=== PATIENT | female | born 1955 | race Caucasian/White ===

== ENCOUNTER 2016-05-15 15:14 | Inpatient (IN) | payer OTHER, MEDICAID ==
--- NOTE | 2016-05-15 15:31 | CPEKG ---
Heart Rate: 111 RR Interval: 541 P-R Interval: 152 QRSD Interval: 68 QT Interval: 316 QTC Interval: 430 P [place]: 73 QRS [place]: -41 T Wave [place]: 53 EKG Severity - OTHERWISE NORMAL ECG - EKG Impression: SINUS TACHYCARDIA EKG Impression: LEFT AXIS DEVIATION Electronically Signed By: Beto Hutchinson 15-May-2016 17:23:53
[2016-05-15] MEDS ORDERED: IPRATROPIUM/ALBUTEROL 3 ML DEYVIAL IH ONE (15:34)
--- NOTE | 2016-05-15 15:34 | EDPHY ---
H & P Time Seen by Provider: 05/15/16 15:33 HPI/ROS: Chief complaint. Short of breath HPI. 61-year-old female here by EMS from [facility] with shortness of breath that apparently has been bothering her for the last several days but worse today. She had an upper respiratory infection 2 weeks ago. She was hospitalized at [facility] on May 03 for 4 days after a fall and she could not get up. She has been at [facility] for 1 week. Increased shortness of breath today. Apparent fever. She is on no medications other than eyedrops. She has a history of lung and brain cancer in the that is apparently historical. She does however have seizures. Her last seizure was about 2 weeks ago. She continues to smoke. She carries a DNR status and paperwork is here ROS Constitutional. Fever and weakness Eyes. no problems with vision ENT. no sore throat, no nasal drainage Cardiovascular. no chest pain Respiratory. Shortness of breath Abdominal. no abdominal pain, no nausea/vomiting, no diarrhea . no problems urinating MS. no calf pain/swelling, no neck/back pain, no joint pain Skin. no rash Lymph. no swollen glands Neuro. Can't walk and has not spoken. History is from her niece Past Medical/Surgical History: Metastatic lung cancer, seizure disorder, osteoporosis, failure to thrive, likely COPD Social History: Single, daily smoker, no alcohol Smoking Status: Current every day smoker Physical Exam: General Appearance: Alert but nonverbal well-developed female moderate to severe distress. Vital signs show temp 37.9degrees, heart rate 115, O2 saturation 88% on 10 L Eyes: Pupils equal and round no pallor or injection. ENT, Mouth: Mucous membranes are moist. Respiratory: Inspiratory expiratory rhonchi and there are retractions Cardiovascular: Regular rate and rhythm. Gastrointestinal: Abdomen is soft and nontender, no masses, bowel sounds normal. Neurological: Awake and alert, sensory and motor exams grossly normal. Skin: Warm and dry, no rashes. Musculoskeletal: Neck is supple nontender. Extremities symmetrical, full range of motion. Psychiatric: Patient is nonverbal Constitutional: Initial Vital Signs Temperature (C) 37.9 C 05/15/16 15:30 Heart Rate 115 H 05/15/16 15:30 Respiratory Rate 20 05/15/16 15:30 Blood Pressure 139/97 H 05/15/16 15:30 O2 Sat (%) 88 L 05/15/16 15:30 O2 Delivery Mode Bi-Pap O2 (L/minute) 15 Allergies/Adverse Reactions: Sulfa (Sulfonamide Antibiotics) Allergy (Verified 05/15/16 16:16) tetracycline Allergy (Verified 05/15/16 16:17) Home Medications: Medication Instructions Recorded Acetaminophen [Tylenol 325mg (*)] 325 mg PO Q4H PRN 05/15/16 Acetaminophen [Tylenol Supp 325mg 650 mg NC Q4H PRN 05/15/16 (*)] Guaifenesin [Tussin] 200 mg PO Q6H PRN 05/15/16 Nicotine [Nicoderm Cq 7 mg (*)] 7 mg TD DAILY@05/15/16 Sennosides/Docusate Sodium 2 each PO BID PRN 05/15/16 [SENEXON-S TABLET] guaiFENesin [Mucinex 600 MG (*)] 1,200 mg PO BID@,05/15/16 morphINE [Roxanol 10 mg/0.5 ml 5 mg PO Q2H PRN 05/15/16 oral soln (*)] Medical Decision Making - Diagnostics Imaging: One-view chest x-ray interpreted by me consistent with either CHF for pneumonia. Procedures: IV normal saline with gentle fluid bolus of 500 cc. Monitor. Sepsis workup ED Course/Re-evaluation: Respiratory therapy is contacted to place the patient on BiPAP. The BiPAP improved oxygenation and decreases heart rate IV Rocephin after blood cultures I consulted and discussed case Dr. Coughlin, hospitalist who recommends cefepime. This is given in addition to the Rocephin. The patient, her niece, and I discussed treatment plan in continuing comfort with DNR orders. Fortunately the patient is doing well with BiPAP. Patient will be placed in ICU or step-down Differential Diagnosis: I considered pneumonia, congestive heart failure, acute coronary syndrome. Patient has acute respiratory failure but is DNR. Fortunately the BiPAP seems to be helping quite a bit Critical Care Time: Critical care time exclusive procedures 40 minutes - Data Points Laboratory Results: Laboratory Results 05/15/16 15:21 05/15/16 15:21 05/15/16 05/15/16 15:39 15:21 WBC 14.42 H 10^3/uL (3.80-9.50) RBC 4.68 10^6/uL (4.18-5.33) Hgb 14.5 g/dL (12.6-16.3) Hct 44.6 % (38.0-47.0) MCV 95.3 fL (81.5-99.8) MCH 31.0 pg (27.9-34.1) MCHC 32.5 g/dL (32.4-36.7) RDW 13.6 % (11.5-15.2) Plt Count 497 H 10^3/uL (150-400) MPV 9.9 fL (8.7-11.7) Neut % (Auto) Not Reported Lymph % (Auto) Not Reported [place] % (Auto) Not Reported Eos % (Auto) Not Reported Baso % (Auto) Not Reported Nucleat RBC Rel Count 0.0 % (0.0-0.2) Absolute Neuts (auto) Not Reported Absolute Lymphs (auto) Not Reported Absolute Monos (auto) Not Reported Absolute Eos (auto) Not Reported Absolute Basos (auto) Not Reported Absolute Nucleated RBC 0.00 10^3/uL (0-0.01) Immature Gran % Not Reported Seg Neutrophils % 67 % Band Neutrophils % 16 % Lymphocytes % 14 % Monocytes % 3 % Immature Gran # Not Reported Absolute Seg Neuts 9.66 H 10^/uL (1.70-6.50) Absolute Band Neuts 2.31 H 10^3/uL (0.00-0.70) Absolute Lymphocytes 2.02 10^3/uL (1.00-3.00) Absolute Monocytes 0.43 10^3/uL (0.30-0.80) Platelet Estimate ADEQUATE (ADEQ) Large Platelets PRESENT H Polychromasia 1+ H Echinocytes 1+ H PT 16.0 H SEC (12.0-15.0) INR 1.28 H (0.83-1.16) APTT 29.6 SEC (23.0-38.0) VBG Lactic Acid 2.9 H mmol/L (0.7-2.1) Sodium 147 H mEq/L (134-144) Potassium 4.6 mEq/L (3.5-5.2) Chloride 104 mEq/L (97-110) Carbon Dioxide 29 mEq/l (22-31) Anion Gap 14 mEq/L (8-16) BUN 20 mg/dL (7-23) Creatinine 0.7 mg/dL (0.6-1.0) Estimated GFR > 60 Glucose 145 H mg/dL (70-100) Calcium 9.4 mg/dL (8.5-10.4) Total Bilirubin 0.9 mg/dL (0.1-1.4) Troponin I 0.014 ng/mL (0-0.034) NT-Pro-B Natriuret Pep 929 H pg/mL (0-125) Medications Given: Discontinued Medications Albuterol/Ipratropium (Duoneb) 3 ml IH EDNOW ONE Stop: 05/15/16 15:35 Last Admin: 05/15/16 15:42 Dose: 3 ml Ceftriaxone Sodium 2 gm/ (Dextrose) 50 mls @ 100 mls/hr IV EDNOW ONE PRN Reason: Protocol Stop: 05/15/16 16:32 Last Admin: 05/15/16 16:23 Dose: 50 mls Sodium Chloride (Ns) 500 mls @ 0 mls/hr IV ONCE ONE PRN Reason: Wide Open Stop: 05/15/16 16:15 Last Admin: 05/15/16 16:24 Dose: 500 mls Cefepime HCl 2 gm/ Dextrose 100 mls @ 200 mls/hr IV EDNOW ONE PRN Reason: Protocol Stop: 05/15/16 17:03 Last Admin: 05/15/16 17:06 Dose: 100 mls Sodium Chloride (Ns) 1,000 mls @ 3,000 mls/hr IV ONCE ONE Stop: 05/15/16 17:13 Last Admin: 05/15/16 16:58 Dose: 1,000 mls Departure - Departure Disposition: [facility] Inpatient Acute Clinical Impression: Acute respiratory failure Qualifiers: Respiratory failure complication: hypoxia Qualifier Code: (J96.01) Acute respiratory failure with hypoxia Pneumonia Qualifiers: Pneumonia type: due to unspecified organism Condition: Serious
[2016-05-15 15:43] LABS: ADD MORPH? NO; ADD SCAN? YES; ATYPICAL LYMPHOCYTE FLAG 30 (0-99); FRAGMENT RBC FLAG 0 (0-99); HEMATOCRIT 44.6 % (38.0-47.0); HEMOGLOBIN 14.5 g/dL (12.6-16.3); LIPEMIA HEMOLYSIS FLAG 80 (0-99); MEAN CELL HEMOGLOBIN CONCENTR. 32.5 g/dL (32.4-36.7); MEAN CELL VOLUME 95.3 fL (81.5-99.8); MEAN PLATELET VOLUME 9.9 fL (8.7-11.7); PLATELET CLUMPS FLAG 0 (0-99); PLATELET COUNT 497 10^3/uL (150-400); RED BLOOD CELL COUNT 4.68 10^6/uL (4.18-5.33); RED CELL DISTRIBUTION WIDTH 13.6 % (11.5-15.2)
[2016-05-15 15:47] LABS: INR 1.28 (0.83-1.16)
[2016-05-15 15:48] LABS: APTT 29.6 SEC (23.0-38.0)
[2016-05-15 15:53] LABS: LEFT SHIFT FLG 260 (0-99)
[2016-05-15 15:56] LABS: ANION GAP 14 mEq/L (8-16); CALCIUM 9.4 mg/dL (8.5-10.4); CARBON DIOXIDE 29 mEq/l (22-31); CHLORIDE 104 mEq/L (97-110); CREATININE 0.7 mg/dL (0.6-1.0); GLOMERULAR FILTRATION RATE > 60; GLUCOSE 145 mg/dL (70-100); POTASSIUM 4.6 mEq/L (3.5-5.2); SODIUM 147 mEq/L (134-144)
[2016-05-15 16:02] LABS: BILIRUBIN,TOTAL 0.9 mg/dL (0.1-1.4)
[2016-05-15] MEDS ORDERED: cefTRIAXone 2 GM in D5W 50 ML IV ONE (16:03)
[2016-05-15 16:11] LABS: TROPONIN I 0.014 ng/mL (0-0.034)
[2016-05-15 16:18] LABS: ADD DIFF? YES; SCAN POSITIVE
[2016-05-15] MEDS: NS 500 ML IV ONE ×2 (16:23→16:24)
[2016-05-15 16:24] LABS: LARGE PLATELETS PRESENT; PLATELET ESTIMATE ADEQUATE (ADEQ)
[2016-05-15 16:25] LABS: POLYCHROMASIA 1+
[2016-05-15 16:26] LABS: ECHINOCYTES 1+
[2016-05-15] MEDS ORDERED: CEFEPIME HCL 2 GM in D5W 100 ML IV ONE (16:34)
--- NOTE | 2016-05-15 16:48 | DX ---
Portable AP Upright Chest, Two Views May 15, 2016 3:52 p.m. Clinical History: 61-year-old female complaining of shortness of breath. Comparison Study: None. Findings: On the two views obtained, the patient is rotated to the right, and the technologist indica nik that the patient was unable to be straightened while seated, and the images acquired were the bes t possible. Telemetry monitoring lead lines and oxygen tubing are in place. There are some surgical c lips projected over the central aspect of the chest. There are diffuse areas of alveolar consolidatio n involving the right mid and lower lung zones, with peribronchial thickening. The left hemithorax is relatively clear. The patient's left nipple is seen en-face. There is no pneumothorax. There is a le vorotatory thoracic curvature which may be positional. Impression: 1. Right rotational change. 2. Diffuse infiltrates involving the right [id number] lung zones.
[2016-05-15] MEDS ORDERED: NS 1,000 ML IV ONE (16:54)
[2016-05-15] MEDS ORDERED: ONDANSETRON DISINTEGRATING 4 MG TAB PO PRN (16:55)
[2016-05-15] MEDS ORDERED: LORazepam 2 MG/ML INJ IVP PRN (16:55)
[2016-05-15] MEDS ORDERED: ALBUTEROL 3 ML DEYVIAL IH PRN (16:55)
[2016-05-15] MEDS ORDERED: ONDANSETRON 4 MG/2 ML VIAL IVP PRN (16:55)
[2016-05-15] MEDS ORDERED: HYDROmorphONE/DILAUDID 1 MG/ML SYR ONE (17:15)
[2016-05-15] MEDS: HYDROmorphONE/DILAUDID 1 MG/ML SYR IVP PRN (17:19)
--- NOTE | 2016-05-15 17:38 | GHP ---
[f rep st] HISTORY AND PHYSICAL DATE OF ADMISSION: 05/15/2016 HISTORY OF PRESENT ILLNESS: The patient is a 61-year-old female with a remote history of lung cancer with likely COPD and ongoing smoking use, who presents in respiratory distress. Much of the history is obtained from her niece who was at the bedside, as the patient is on bilevel and not that verbal when I speak with her. It sounds like she was living with the niece and doing poorly with declining functional status, ernestine nuing to smoke cigarettes, with generalized weakness. She was admitted to [facility]. I t sounds like she was diagnosed with aspiration, but the details of that hospitalization are unclear, and the records are not available to me. She was sent to [facility] and she reports from there t paulino. She has a dry cough. She acknowledges shortness of breath to me. It is not clear that any in terventions in the Emergency Department such as bilevel antibiotics have helped her. She did get a f yulissa shot this year. She has recently been transitioned to nectar-thick liquids, but the daughter note d solid food at her bedside. We discussed the code status and the patient is do not resuscitate. REVIEW OF SYSTEMS: A complete 10-point review of systems was conducted and negative, except as noted in the HPI. PAST MEDICAL HISTORY: 1. Lung cancer with brain mets in the 90s that is apparently in remission. 2. Likely COPD. 3. Ongoing tobacco use and abuse. 4. Cachexia. 5. Aspiration. SOCIAL HISTORY: She is a lifelong smoker. Minimal alcohol. [facility] FAMILY HISTORY: Her niece is healthy. Her parents are . ALLERGIES: Sulfa and tetracycline. MEDICATIONS: Home medications are being reconciled at this point in time and are unclear. PHYSICAL EXAM: PRESENTING VITAL SIGNS: Temperature 37.9, blood pressure 139/97, pulse , b reathing 20 times a minute, 88% on 15 L non-rebreather, is 95% on BiPAP now. GENERAL: She is cachec tic, in mild distress. HEENT: Mucous membranes are dry. NECK: Supple without lymphadenopathy or J VD. LUNGS: A difficult exam. They are rhonchorous from the bilevel. There are crackles on the rig ht side. HEART: Tachycardic. S1, S2. ABDOMEN: Scaphoid. Nontender without rebound or guarding. LOWER EXTREMITIES: Without edema. Her calves are nontender. SKIN: Without rash. I did not view her coccyx for skin breakdown. LABS: Her white count is 14 with a left shift. Her hematocrit is 45, platelets are 497,000. INR is 1.3. Lactate is 2.9. Sodium 147, potassium 4.6, chloride 104, bicarb 29, BUN 20, creatinine 0.7, glucose 145. Troponin is 0.014. BNP is 929 without prior available. Chest x-ray shows significant rightward rotation with left hyperinflation and infiltrate throughout t he right lobe. EKG interpreted by me shows sinus tachycardia at 111 with left axis deviation, normal intervals, ther e were no ST or T-wave changes. I have discussed the case Dr. Beto Hutchinson. ASSESSMENT AND PLAN: This is a 61-year-old female with sepsis and pneumonia. 1. Pneumonia. This is healthcare-associated pneumonia. I will treat her with Zosyn and azithromyci n, given the concern for possible anaerobes with a likely aspiration. 2. Acute respiratory failure. The patient has hypoxemic respiratory failure. It is likely acute-on -chronic given her long-standing smoking. Will provide bilevel nebulizers. I will give her a dose o f steroids as well. 3. Sepsis. Source is lungs. I will check an influenza for completeness' sake. I will follow up on her venous lactate. I will volume resuscitate her now. 4. Code status. Do not resuscitate. 5. Disposition. Step-down unit. 6. Prophylaxis. Pharmacologic prophylaxis indicated with enoxaparin 30 daily. 7. Elevated BNP. I suspect she has pulmonary hypertension. 8. Anemia. It is likely multifactorial. DISPOSITION: Inpatient status. /[id number]/MODL
[2016-05-15] MEDS ORDERED: PIPERACILLIN SODIUM/TAZOBACTAM 3.375 GM in D5W 50 ML IV ONE (18:30)
[2016-05-15] MEDS: AZITHROMYCIN IV 500 MG in D5W 250 ML IV SCH (20:56)
[2016-05-15] MEDS: NS 1,000 ML IV SCH (20:56)
[2016-05-15] MEDS: methylPREDNISolone SOD SUCC 40 MG/ML VIAL IVP SCH (20:57)
[2016-05-15] MEDS ORDERED: CEFEPIME HCL 2 GM in D5W 100 ML IV SCH (21:00)
[2016-05-15] MEDS: IPRATROPIUM/ALBUTEROL 3 ML DEYVIAL IH SCH (22:14)
[2016-05-16] MEDS ORDERED: PIPERACILLIN/TAZO 3.375 GM/DEX 50 ML IV SCH
[2016-05-16] MEDS: HYDROmorphONE/DILAUDID 1 MG/ML SYR IVP PRN (01:17)
[2016-05-16] MEDS: PIPERACILLIN SODIUM/TAZOBACTAM 3.375 GM in D5W 50 ML IV SCH ×5 (01:28→23:02)
[2016-05-16] MEDS: NS 1,000 ML IV SCH ×2 (05:00→20:24)
[2016-05-16] MEDS: IPRATROPIUM/ALBUTEROL 3 ML DEYVIAL IH SCH ×4 (05:18→21:34)
[2016-05-16 05:34] LABS: ANION GAP 9 mEq/L (8-16); CALCIUM 7.5 mg/dL (8.5-10.4); CARBON DIOXIDE 23 mEq/l (22-31); CHLORIDE 113 mEq/L (97-110); CREATININE 0.5 mg/dL (0.6-1.0); GLOMERULAR FILTRATION RATE > 60; GLUCOSE 152 mg/dL (70-100); POTASSIUM 3.8 mEq/L (3.5-5.2); SODIUM 145 mEq/L (134-144)
[2016-05-16 05:45] LABS: % IMMATURE GRANULYOCYTES 0.3 % (0.0-1.1); ABSOLUTE IMMATURE GRANULOCYTES 0.04 10^3/uL (0.00-0.10); ADD DIFF? NO; ADD MORPH? NO; ADD SCAN? YES; ATYPICAL LYMPHOCYTE FLAG 20 (0-99); FRAGMENT RBC FLAG 0 (0-99); HEMATOCRIT 33.7 % (38.0-47.0); HEMOGLOBIN 11.2 g/dL (12.6-16.3); LIPEMIA HEMOLYSIS FLAG 80 (0-99); MEAN CELL HEMOGLOBIN 31.8 pg (27.9-34.1); MEAN CELL HEMOGLOBIN CONCENTR. 33.2 g/dL (32.4-36.7); MEAN CELL VOLUME 95.7 fL (81.5-99.8); MEAN PLATELET VOLUME 9.8 fL (8.7-11.7); PLATELET CLUMPS FLAG 10 (0-99); PLATELET COUNT 354 10^3/uL (150-400); RED BLOOD CELL COUNT 3.52 10^6/uL (4.18-5.33); RED CELL DISTRIBUTION WIDTH 13.7 % (11.5-15.2)
[2016-05-16 05:46] LABS: LEFT SHIFT FLG 300 (0-99)
[2016-05-16 06:21] LABS: SCAN NEGATIVE
[2016-05-16] MEDS: methylPREDNISolone SOD SUCC 40 MG/ML VIAL IVP SCH ×3 (06:32→22:48)
--- NOTE | 2016-05-16 08:55 | DX ---
Portable AP Upright Chest May 16, 2016 at 6:17 a.m. Clinical History: 61-year-old female in the ICU for follow-up of pneumonia. The patient has a chronic tobacco use history with lung cancer and has a leukocytosis. Comparison Study: Chest, dated May 15, 2016 at 3:52 p.m. Findings: The patient is slightly less rotated to the right. There are surgical clips near the right hilum and volume loss in the right hemithorax with increasing consolidation involving the right mid-l ower lung zones and some asymmetric interstitial changes on the right. There are some surgical anasto motic clips in the right apex. The cardiac size is normal. The left hemithorax is clear and hyperexpa nded. The osseous structures are age-appropriate. Impression: Postsurgical change to the right hemithorax with volume loss and increasing pleuroparench ymal consolidation, compared to May 15, 2016.
[2016-05-16] MEDS: AZITHROMYCIN IV 500 MG in D5W 250 ML IV SCH (09:05)
[2016-05-16] MEDS: ENOXAPARIN 30 MG/0.3 ML SYR SC SCH (09:05)
--- NOTE | 2016-05-16 10:26 | HOSPPROG ---
Hospitalist Progress Note Assessment/Plan: DIAGNOSIS: # ACUTE RESP FAILURE, HYPOXEMIC REQUIRING BIPAP # PNEUMONIA, LIKELY ASPIRATION # SEVERE CACHEXIA, SEVERE PCM WITH ONGOING FAIRLY RAPID WT LOSS # BACK PAIN # NORMOCYTIC ANEMIA # HYPERNATREMIA In terms of her acute respiratory presentation this is likely respiratory infection induced respiratory failure with COPD exacerbation. I expect that this will recover fairly well without complication. However her overall picture is highly suggestive of either malignancy or some other underlying illness and this will need significant further evaluation and prognostication. PLANS: -swallow eval and decide on po intake -continue abx -continue bronchodilators, steroid -vitamin replacement therapy -nutritional supplements -Will get x-rays of her spine to look for any signs of malignancy, and possibly further evaluation depending on what is seen air I reviewed the patient's condition and care plan with Dr. 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 Exam: alert mildly disoriented Severe cachexia and other signs of diffuse protein calorie malnutrition and general malnutrition skin warm dry color ok resps not labored lungs clear but very diminished BSs heart regular abd soft nondistended nontender, bowel sounds present limbs warm, no edema iv site ok Objective: Vital Signs Temp Pulse Resp BP Pulse Ox 37.3 C 87 21 H 117/64 95 05/15/16 20:00 05/16/16 07:57 05/16/16 07:57 05/16/16 07:57 05/16/16 07:57 Laboratory Results 05/16/16 05:05 05/16/16 05:05 05/15/16 05/16/16 05/17/16 06:59 06:59 06:59 Intake Total 3005 Balance 3005 PT 16.0 SEC (12.0-15.0) H 05/15/16 15:21 INR 1.28 (0.83-1.16) H 05/15/16 15:21 ICD10 Worksheet Patient Problems: Problems Problem Status Diagnosed Acute respiratory failure Acute Pneumonia Acute
[2016-05-16] MEDS: morphINE 10 MG/0.5 ML UDSYR PO PRN (14:09)
[2016-05-16 14:16] LABS: BASE EXCESS -0.4 mEq/L (-2.5-2.5); BICARBONATE 22 mEq/L (22-26); MEASURED OXYGEN SATURATION 91 % (92-95); PCO2 29 mmHg (34-38); PO2 56 mmHg (65-75); TCO2 23 mEq/L (23-27)
--- NOTE | 2016-05-16 18:01 | GCON ---
[f rep st] CONSULTATION PULMONARY CRITICAL CARE CONSULTATION DATE OF CONSULTATION: 05/16/2016 REASON FOR CONSULTATION: Pneumonia. HISTORY: The patient is a 61-year-old with a history of lung cancer and COPD, who was admitted yeste rday with respiratory distress. She was recently at [facility] and was treated there for alte red mental status and weakness. She did not have pneumonia at that time and CT scan of the lungs did not show pneumonia at that time on right side. There was evidence of a previous right-sided lobecto my related to the right upper lobe and some scarring or atelectasis at the lung bases. CT scan of th e head and MRI were negative for acute processes. Workup was negative for infection. She did have a Palliative Care consultation there and the patient was apparently discharged to Hospice. However, a fter discharge her niece and medical [id number]-nozcydfy apparently changed her mind and withdrew the h ospice status. The patient does remain do not resuscitate. She was brought into the hospital secondary to increasing respiratory distress. She did have a histo ry of metastatic lung cancer associated with brain metastases a number of years ago. This was appare ntly in the and there has been no evidence of recurrence since then. The patient does smoke an d continues to smoke. She clearly has COPD and emphysema, as the latter was noted on her recent CAT scan. There is a history of malnutrition and aspiration. PAST MEDICAL HISTORY: Dementia, lung cancer with previous brain mets, no evidence of disease, hepati tis C, a history of seizures, hypoxemia, malnutrition, osteoporosis, and recent falls. MEDICATIONS ON ADMISSION: Listed as Roxanol, guaifenesin, a nicotine patch, and as-needed laxatives. SOCIAL HISTORY: The patient lives with her niece. She has smoked for many years and continues to sm cedric. Alcohol and drugs are negative. FAMILY HISTORY: Noncontributory. REVIEW OF SYSTEMS: Difficult to obtain. She denies shortness of breath or chest pain. She states t hat she would like to continue to receive Mucinex. She denies known heart disease. DRUG ALLERGIES: Sulfa and tetracycline preparations. PHYSICAL EXAMINATION: GENERAL: Reveals a pleasant very thin, somewhat cachectic woman who looks old er than her stated age. VITAL SIGNS: Blood pressure is approximately 120/60, heart rate 86 with sin us rhythm on the monitor, respiratory rate is 22, on 8 L saturations are 95%. HEENT: Unremarkable f or lymphadenopathy or thyromegaly. There is no obvious jugular venous distention. The mucous membra haven are dry. There is no obvious evidence of pharyngitis or thrush. CHEST: Reveals coarse rales, s ome expiratory wheezes and rhonchi with consolidative changes on the right. Breath sounds are dimini shed on the left, but no consolidation is present. HEART: Regular in rate and rhythm. There is a s ystolic murmur. P2 does appear to be increased. There are no obvious gallops. ABDOMEN: Scaphoid, s oft, nontender. Bowel sounds are present, somewhat diminished. EXTREMITIES: Unremarkable for signi ficant edema. There are no cords and no tenderness. SKIN: Without rash or significant lesions. DATA REVIEWED: Chest x-ray shows a right lower lobe infiltrate and volume loss, the latter is likely chronic. Chest x-ray today shows some progression compared to the chest x-ray on admission. White blood cell count is 11,800, hematocrit 33.7 down from 44 on admission, platelets are normal. PT is 1 6, PTT 29. Arterial blood gas shows a pH of 7.49, pCO2 of 29, and pO2 of 56 on 8 L of oxygen. Venou s lactate was approximately 3 on admission, 2 on followup. Sodium is 145, potassium 3.8, BUN 14, cre atinine 0.5, chloride 113, CO2 was 23, glucose is 152. Calcium 7.5. Troponins were negative. Bilir ubin was normal. Liver function studies were not done. BNP is 929. Influenza A/B by PCR was negati ve. ASSESSMENT: 1. Right-sided pneumonia: This may be secondary to aspiration and is in the setting of recent hospi talization, and should thus be considered nosocomial. She is on Zosyn and azithromycin, appropriate coverage. 2. Chronic obstructive pulmonary disease/emphysema: She has at least moderate disease. She is not wheezing significantly, but does have some wheezing. She is not a CO2 retainer. She is on inhaled t herapies, as well as intravenous steroids at moderate doses. 3. History of lung cancer apparently 20 years ago with brain metastases at that time: No evidence o r recurrence currently. Further evaluation for this may be indicated. 4. Malnutrition: This appears to be chronic. Further details are needed. 5. History of dementia. 6. History of previous seizure disorder: She may have had a seizure more recently. She is on no me dications for this. Further information will need to be obtained. 7. Possible aspiration risk: This was mentioned on her recent hospitalization. Further investigati on is warranted. A barium swallow may be indicated. 8. Do not resuscitate status: This will be maintained. The patient was recently on Hospice, but he r medical [id number] withdrew this. These issues will need to be reexplored. Palliative Care consult was recently done and will be repeated here. PLANS: The patient will be kept in the intensive care unit for now. Current antibiotics and broncho pulmonary therapies along with steroids will be continued. Laboratory and chest x-ray will be follow ed. Enoxaparin will be given for DVT prophylaxis. She is eating, no GI prophylaxis is indicated. S wallowing will be assessed at the bedside. A Palliative Care consultation will be requested, and fur ther discussions during this hospitalization with the patient and her niece will be undertaken. Further plans and recommendations will be made based on her progress over the next 12-24 hours. /[id number]/MODL
[2016-05-16] MEDS: ACETAMINOPHEN 325 MG TAB PO PRN (20:00)
[2016-05-16 23:50] LABS: COLOR YELLOW; LEUKOCYTE ESTERASE,URINE NEGATIVE (NEGATIVE); NITRITE,URINE NEGATIVE (NEGATIVE)
[2016-05-16 23:58] LABS: WBC,URINE NONE SEEN /hpf (0-3)
[2016-05-17] MEDS: NS 1,000 ML IV SCH ×2 (02:07→09:09)
[2016-05-17 04:06] LABS: ANION GAP 9 mEq/L (8-16); CALCIUM 8.2 mg/dL (8.5-10.4); CARBON DIOXIDE 24 mEq/l (22-31); CHLORIDE 113 mEq/L (97-110); CREATININE 0.5 mg/dL (0.6-1.0); GLOMERULAR FILTRATION RATE > 60; GLUCOSE 155 mg/dL (70-100); POTASSIUM 3.4 mEq/L (3.5-5.2); SODIUM 146 mEq/L (134-144)
[2016-05-17] MEDS: methylPREDNISolone SOD SUCC 40 MG/ML VIAL IVP SCH ×3 (05:03→21:51)
[2016-05-17] MEDS: PIPERACILLIN SODIUM/TAZOBACTAM 3.375 GM in D5W 50 ML IV SCH ×4 (05:04→23:29)
[2016-05-17] MEDS: IPRATROPIUM/ALBUTEROL 3 ML DEYVIAL IH SCH ×4 (05:32→21:35)
[2016-05-17] MEDS: AZITHROMYCIN IV 500 MG in D5W 250 ML IV SCH (09:01)
[2016-05-17] MEDS: ENOXAPARIN 30 MG/0.3 ML SYR SC SCH (09:10)
--- NOTE | 2016-05-17 15:19 | HOSPPROG ---
Hospitalist Progress Note Assessment/Plan: DIAGNOSIS: # ACUTE RESP FAILURE, HYPOXEMIC REQUIRING BIPAP # PNEUMONIA, LIKELY ASPIRATION # SEVERE CACHEXIA, SEVERE PCM WITH ONGOING FAIRLY RAPID WT LOSS # BACK PAIN # NORMOCYTIC ANEMIA # HYPERNATREMIA In terms of her acute respiratory presentation this is likely respiratory infection induced respiratory failure with COPD exacerbation. I expect that this will recover fairly well without complication. However her overall picture is highly suggestive of either malignancy or some other underlying illness and this will need significant further evaluation and prognostication. She did not get the spine xrays that I ordered yesterday, unclear why; attempting to get now She had been hospitalized in [place] recently and was placed on hospice, moved to local SNF here. Here eric (only family member) apparently was involved in discontinuing hospice since then. The pt tells me she is and was living alone in [facility] until eric suggested she move here, which she did 14 mos ago. Had been living with eric until the recent hospital stay, but says the eric does not want her to be here in [place] anymore. PLANS: -swallow eval and decide on po intake -continue abx -continue bronchodilators, steroid -vitamin replacement therapy -nutritional supplements -Will get x-rays of her spine to look for any signs of malignancy, and possibly further evaluation depending on what is seen air -attempt to review drew reyes, reapproach palliative care discussion. I reviewed the patient's condition and care plan with Dr. 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 Exam: alert a bit less disoriented Severe cachexia and other signs of diffuse protein calorie malnutrition and general malnutrition skin warm dry color ok resps not labored lungs clear, very diminished BSs heart regular abd soft nondistended nontender, bowel sounds present limbs warm, no edema iv site ok Objective: Vital Signs Temp Pulse Resp BP Pulse Ox 36.6 C 67 18 114/61 97 05/17/16 08:00 05/17/16 11:20 05/17/16 11:20 05/17/16 08:00 05/17/16 08:00 Laboratory Results 05/16/16 05:05 05/17/16 03:45 05/16/16 05/17/16 05/18/16 06:59 06:59 06:59 Intake Total 3005 3565 Output Total 200 Balance 3005 3365 PT 16.0 SEC (12.0-15.0) H 05/15/16 15:21 INR 1.28 (0.83-1.16) H 05/15/16 15:21 ICD10 Worksheet Patient Problems: Problems Problem Status Diagnosed Acute respiratory failure Acute Pneumonia Acute
[2016-05-17] MEDS: HYDROmorphONE/DILAUDID 1 MG/ML SYR IVP PRN (16:11)
--- NOTE | 2016-05-17 16:28 | PDPCPN ---
Palliative Care Progress Note Assessment/Plan: Referring provider: Dr Hernandez Reason for consult: Complex medical decision making Symptom control HPI: Virginia Hong is a 61 yo female with PMH lung cancer, brain cancer, eye cancer, and COPD admitted to the hospital from [facility] for respiratory distress. Recent discharge from OSH for PNA and was sent to with "comfort care" only as it was thought she was actively dying. She recovered a little while at and when she began to have resp distress was brought to the hospital. On admission with RLL PNA being treated with antibiotics and oxygen. Speech following with recs for nectar thick liquids. palliative care consulted for complex medical decision making. Spoke with Niece Virginia by telephone this morning. She stated her Aunt was living with her at her home up until her most recent hospitalization. She was looking into assisted living for her needs as she was needing increasing care. Virginia stated she had fallen multiple times and was alone for most of the day while her niece was at work. She moved up here from [place] to live with her niece as she has no other family members. Per her niece she was told at the OSH that her Aunt was on her deathbed and that is why comfort care was recommended. She rallied when she got to and started to improve a little. The niece feels she is not sure what her wishes are as they have never been able to have that conversation and so when she was struggling she opted for hospitalization and treatment because she had started to improve. Spoke with Virginia at the bedside later in the morning. She shared that her sister and mother also both had COPD and at an early age. She felt like they had suffered at the end of life with life prolonging measures. She stated she did not want to be like them and instead wanted a more natural course of her life with comfort at the end. She is familiar with hospice care as her sister was in hospice at the very end of her life. She feels she doesn't like the hospital because she is not able to do whatever she wishes (like going outside in a wheelchair). She knew she was in the hospital and has COPD but did not know she has PNA. Assessment: Physical: - Pain: back pain- chronic - Tylenol PRN - also has morphine and dilaudid available as needed - Dyspnea/cough: - oxygen as needed - opiates as above if needed for subjective SOB Emotional/psychological: Some confusion and memory loss: on/off Advanced Care Planning: Is patient decisional?: Yes Code Status: DNR- does not want any life prolonging measures MD OCONNELL: Niece is proxy. Will work on TIKI.VN form Plan: Will continue conversations about her overall goals. It is clear she would not want CPR or other aggressive life prolonging measures. Unclear about future re-hospitalizations. Return to [facility] when able. 05/17/16 16:34 Subjective: I feel sick today Objective: Social History: Never . Moved from [place] to live with her niece her only family. Medication list reviewed ROS: General: fatigue, weakness, weight loss ENT: negative Resp: dyspnea, cough GI: poor appetite : negative MS: back pain Skin: negative Neuro: negative Psych: memory loss Functional assessment: PPS: 40% Functional status: dependent on ADLs, IADLs Vital Signs Temp Pulse Resp BP Pulse Ox 36.6 C 89 20 129/73 H 96 05/17/16 16:00 05/17/16 16:00 05/17/16 16:00 05/17/16 16:00 05/17/16 16:00 Laboratory Results 05/16/16 05:05 05/17/16 03:45 05/16/16 05/17/16 05/18/16 05:59 05:59 05:59 Intake Total 3005 3470 95 Output Total 200 Balance 3005 3270 95 PT 16.0 SEC (12.0-15.0) H 05/15/16 15:21 INR 1.28 (0.83-1.16) H 05/15/16 15:21 Physical Exam - Physical Exam General Appearance: alert, no apparent distress, cachetic Respiratory: No respiratory distress, No accessory muscle use Skin: normal color, warm/dry Extremities: No pedal edema Neuro/Psych: alert, disoriented to time ICD10 Worksheet Patient Problems: Problems Problem Status Diagnosed Acute respiratory failure Acute Palliative care encounter Acute Pneumonia Acute - ICD10 Problem Qualifiers (1) Palliative care encounter
--- NOTE | 2016-05-17 16:55 | DX ---
Thoracic and Lumbar Spine Clinical History: 61-year-old female inpatient with a history of lung cancer, weight loss, back pain , and a kyphosis. Comparison Study: Chest radiography, dated May 16, 2016. Findings: THORACIC SPINE (3 Views, at 3:29 p.m.): The bones are demineralized. There is a mild superior cortic al endplate compression fracture (which is age-indeterminate) at the T8 centrum. There is some cloth artifact, which obscures portions of the [id number] thoracic vertebral bodies on the lateral view, and superimposed osseous anatomy precludes evaluation of the cervicothoracic junction. The patient is rotated to the right, and there is a thoracic levoscoliosis, which measures 24 degrees. Extensive ar eas of consolidation throughout the right mid and lower lung zones are seen, with pleural fluid prese nt. There are surgical clips near the right hilum, and at the right apex of the chest. There are post surgical and/or old posttraumatic changes to the right rib cage. Impression: 1. Mild age-indeterminate superior cortical endplate compression fracture at T8 with a kyphoscoliosis . If there is further clinical concern regarding occult osseous metastatic infiltration, consider une nhanced and enhanced MR imaging. 2. Postoperative changes to the right hemithorax, with extensive areas of consolidation in the mid-to -lower lung zones. LUMBAR SPINE (3 Views, at 3:32 p.m.): The bones are demineralized. The vertebral body heights and po sterior alignments are maintained, and the disk spaces are reasonably well-preserved. Cloth artifact overlies portions of the osseous anatomy with some limitation. There are 5 nonrib-bearing lumbar-type vertebral bodies, and the interpediculate distances are appropriate. There are orthopedic compressio n screws associated with the proximal right femur. Telemetry monitoring lead lines are present. There is mural calcification of the abdominal aorta, measuring 2.5 cm in AP diameter. Impression: Bone demineralization, with no acute compression fracture.
[2016-05-17] MEDS: ACETAMINOPHEN 325 MG TAB PO PRN (19:43)
[2016-05-18] MEDS: NS 1,000 ML IV SCH ×2 (02:08→22:04)
[2016-05-18 04:48] LABS: ANION GAP 8 mEq/L (8-16); CALCIUM 7.8 mg/dL (8.5-10.4); CARBON DIOXIDE 24 mEq/l (22-31); CHLORIDE 112 mEq/L (97-110); CREATININE 0.5 mg/dL (0.6-1.0); GLOMERULAR FILTRATION RATE > 60; GLUCOSE 137 mg/dL (70-100); POTASSIUM 3.2 mEq/L (3.5-5.2); SODIUM 144 mEq/L (134-144)
[2016-05-18] MEDS: methylPREDNISolone SOD SUCC 40 MG/ML VIAL IVP SCH ×3 (05:04→22:08)
[2016-05-18] MEDS: PIPERACILLIN SODIUM/TAZOBACTAM 3.375 GM in D5W 50 ML IV SCH ×4 (05:04→23:15)
[2016-05-18] MEDS ORDERED: PROTOCOL POTASSIUM 1 DOSE MISC PRN (05:17)
[2016-05-18] MEDS ORDERED: POTASSIUM CL 10 MEQ TAB PO ONE ×2 (05:27→23:00)
[2016-05-18] MEDS: IPRATROPIUM/ALBUTEROL 3 ML DEYVIAL IH SCH ×4 (05:35→22:29)
[2016-05-18] MEDS: ACETAMINOPHEN 325 MG TAB PO PRN ×2 (05:50→22:09)
[2016-05-18] MEDS: AZITHROMYCIN IV 500 MG in D5W 250 ML IV SCH (09:59)
[2016-05-18] MEDS: ENOXAPARIN 30 MG/0.3 ML SYR SC SCH (09:59)
--- NOTE | 2016-05-18 11:13 | PDINTPN ---
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 Assessment/Plan: Assessment: * Lung Cancer with brain mets * Resp failure * Pneumonia * Cachexia * Anemia * Hypernatremia Plan: Consider comfort care/hospice Okay for floor Subjective: Resting comfortably Objective: Vital Signs Temp Pulse Resp BP Pulse Ox 36.7 C 80 20 156/77 H 94 05/18/16 08:29 05/18/16 08:29 05/18/16 08:29 05/18/16 08:29 05/18/16 08:29 Laboratory Results 05/16/16 05:05 05/18/16 04:15 05/17/16 05/18/16 05/19/16 05:59 05:59 05:59 Intake Total 3470 1549 Output Total 200 Balance 3270 1549 PT 16.0 SEC (12.0-15.0) H 05/15/16 15:21 INR 1.28 (0.83-1.16) H 05/15/16 15:21 Physical Exam - Physical Exam General Appearance: alert, cachetic EENT: PERRL/EOMI, normal ENT inspection Neck: non-tender, full range of motion, supple, normal inspection Respiratory: decreased breath sounds, prolonged expiration, No respiratory distress, No wheezing Cardiac/Chest: normal peripheral pulses, regular rate, rhythm, systolic murmur Peripheral Pulses: 2+: carotid (R), carotid (L), femoral (R), femoral (L), dorsalis-pedis (R), dorsalis-pedis (L) Abdomen: normal bowel sounds, non-tender, soft Pelvic Exam: deferred Rectal: deferred Skin: normal color, warm/dry Extremities: normal range of motion, non-tender, normal inspection, normal capillary refill ICD10 Worksheet Patient Problems: Problems Problem Status Diagnosed Acute respiratory failure Acute Palliative care encounter Acute Pneumonia Acute
[2016-05-18] MEDS: morphINE 10 MG/0.5 ML UDSYR PO PRN (12:19)
--- NOTE | 2016-05-18 12:45 | HOSPPROG ---
Hospitalist Progress Note Assessment/Plan: DIAGNOSIS: # ACUTE RESP FAILURE, HYPOXEMIC REQUIRING BIPAP # PNEUMONIA, LIKELY ASPIRATION # SEVERE CACHEXIA, SEVERE PCM WITH ONGOING FAIRLY RAPID WT LOSS # BACK PAIN # NORMOCYTIC ANEMIA # HYPERNATREMIA High suspicion for aspiration induced COPD exacerbation. I expect that this will recover fairly well without complication. However her overall picture is 1 of progressive overall failure to thrive with severe cachexia. There may be malignancy or this could be due to her advanced emphysema or other cause but there is nothing obvious on her current assessments at the moment. She had been hospitalized in [place] recently and was placed on hospice, moved to local SNF here. Here eric (only family member) apparently was involved in discontinuing hospice since then. The pt is and was living alone in [facility] until eric suggested she move here, which she did 14 mos ago. Had been living with eric until the recent hospital stay, but currently unable to live in a private home due to her severe weakness with falls. There were ongoing discussions with the patient and niece now about palliative options again at this time. PLANS: -transfer to [facility] -continue speech therapy evaluation -continue abx -continue bronchodilators, steroid -vitamin replacement therapy -nutritional supplements -ongoing palliative discussions -likely [facility] within 1[facility] days; if the patient decides against hospice care again at this time, it may be considered useful to pursue further assessments for possible malignancy or other cause of weight loss I reviewed the patient's condition and care plan with Dr. 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 by me: NSR Exam: alert a bit less disoriented Severe cachexia and other signs of diffuse protein calorie malnutrition and general malnutrition skin warm dry color ok resps not labored lungs clear, very diminished BSs heart regular abd soft nondistended nontender, bowel sounds present limbs warm, no edema iv site ok Objective: Vital Signs Temp Pulse Resp BP Pulse Ox 36.7 C 80 20 156/77 H 94 05/18/16 08:29 05/18/16 08:29 05/18/16 08:29 05/18/16 08:29 05/18/16 08:29 Laboratory Results 05/16/16 05:05 05/18/16 04:15 05/17/16 05/18/16 05/19/16 06:59 06:59 06:59 Intake Total 3565 1454 Output Total 200 Balance 3365 1454 PT 16.0 SEC (12.0-15.0) H 05/15/16 15:21 INR 1.28 (0.83-1.16) H 05/15/16 15:21 ICD10 Worksheet Patient Problems: Problems Problem Status Diagnosed Acute respiratory failure Acute Palliative care encounter Acute Pneumonia Acute
[2016-05-19] MEDS: NS 1,000 ML IV SCH ×3 (02:41→14:54)
[2016-05-19 04:41] LABS: POTASSIUM 3.3 mEq/L (3.5-5.2)
[2016-05-19] MEDS: methylPREDNISolone SOD SUCC 40 MG/ML VIAL IVP SCH ×2 (05:29→13:43)
[2016-05-19] MEDS: PIPERACILLIN SODIUM/TAZOBACTAM 3.375 GM in D5W 50 ML IV SCH ×3 (05:29→17:12)
[2016-05-19] MEDS ORDERED: POTASSIUM CL 10 MEQ TAB PO ONE ×2 (05:33→21:19)
[2016-05-19] MEDS: IPRATROPIUM/ALBUTEROL 3 ML DEYVIAL IH SCH ×4 (06:05→21:44)
[2016-05-19] MEDS: ENOXAPARIN 40 MG/0.4 ML SYR SC SCH (08:05)
[2016-05-19] MEDS: AZITHROMYCIN IV 500 MG in D5W 250 ML IV SCH (08:05)
[2016-05-19] MEDS: morphINE 10 MG/0.5 ML UDSYR PO PRN (13:44)
--- NOTE | 2016-05-19 16:32 | HOSPPROG ---
Hospitalist Progress Note Assessment/Plan: * aspiration pneumonia * continue Zosyn for now * recheck chest x-ray in the morning * COPD exacerbation * switched to p.o. prednisone * acute hypoxic respiratory failure * improved * severe cachexia/ protein calorie malnutrition * unclear if this is due to dementia or COPD * hypernatremia * due to decreased p.o. intake * DNR * DVT prophylaxis - Lovenox * disposition - probably back to rehab, considering hospice Subjective: no new complaints Objective: Vital Signs Temp Pulse Resp BP Pulse Ox 36.6 C 84 18 129/70 H 95 05/19/16 16:00 05/19/16 16:00 05/19/16 16:00 05/19/16 16:00 05/19/16 16:00 Laboratory Results 05/16/16 05:05 05/19/16 04:00 05/18/16 05/19/16 05/20/16 05:59 05:59 05:59 Intake Total 1549 3396 Output Total 200 250 Balance 1549 3196 -250 PT 16.0 SEC (12.0-15.0) H 05/15/16 15:21 INR 1.28 (0.83-1.16) H 05/15/16 15:21 - Physical Exam Constitutional: no apparent distress, appears nourished, not in pain Eyes: anicteric sclera Ears, Nose, Mouth, Throat: moist mucous membranes, hearing normal, ears appear normal Cardiovascular: regular rate and rhythym, no murmur, rub, or gallop Respiratory: no respiratory distress, no rales or rhonchi, clear to auscultation Gastrointestinal: normoactive bowel sounds, soft, non-tender abdomen, no palpable masses Skin: warm Psychiatric: interacting appropriately, not anxious, not encephalopathic ICD10 Worksheet Patient Problems: Problems Problem Status Diagnosed Acute respiratory failure Acute Palliative care encounter Acute Pneumonia Acute
[2016-05-19 17:45] LABS: POTASSIUM 3.3 mEq/L (3.5-5.2)
[2016-05-19] MEDS ORDERED: POTASSIUM CL 20 MEQ PKT PO ONE (21:30)
--- NOTE | 2016-05-19 23:10 | DX ---
Single frontal chest. Indication: follow-up pneumonia. COMPARISON: May 16, 2016. FINDINGS: There is mild interval improvement in the aeration of the consolidative right mid and lower lung. Slight blunting of costophrenic angle suggests small effusion. The left lung remains clear. Saba rgical changes in the hilum are unchanged. IMPRESSION: Improving parenchymal consolidation of the right middle and lower lobes
[2016-05-20] MEDS: PIPERACILLIN SODIUM/TAZOBACTAM 3.375 GM in D5W 50 ML IV SCH ×3 (00:55→11:30)
[2016-05-20 04:32] LABS: ABSOLUTE NRBC COUNT 0.06 10^3/uL (0-0.01); ADD DIFF? YES; ADD MORPH? NO; ADD SCAN? NO; ATYPICAL LYMPHOCYTE FLAG 20 (0-99); FRAGMENT RBC FLAG 0 (0-99); HEMATOCRIT 35.1 % (38.0-47.0); HEMOGLOBIN 12.2 g/dL (12.6-16.3); LEFT SHIFT FLG 50 (0-99); LIPEMIA HEMOLYSIS FLAG 90 (0-99); MEAN CELL HEMOGLOBIN 31.7 pg (27.9-34.1); MEAN CELL HEMOGLOBIN CONCENTR. 34.8 g/dL (32.4-36.7); MEAN CELL VOLUME 91.2 fL (81.5-99.8); MEAN PLATELET VOLUME 9.2 fL (8.7-11.7); NRBC-AUTO% 0.4 % (0.0-0.2); PLATELET CLUMPS FLAG 0 (0-99); PLATELET COUNT 333 10^3/uL (150-400); RED BLOOD CELL COUNT 3.85 10^6/uL (4.18-5.33); RED CELL DISTRIBUTION WIDTH 13.3 % (11.5-15.2)
[2016-05-20 04:52] LABS: ANION GAP 7 mEq/L (8-16); CALCIUM 7.8 mg/dL (8.5-10.4); CARBON DIOXIDE 24 mEq/l (22-31); CHLORIDE 105 mEq/L (97-110); CREATININE 0.4 mg/dL (0.6-1.0); GLOMERULAR FILTRATION RATE > 60; GLUCOSE 83 mg/dL (70-100); MACROCYTES 1+; PLATELET ESTIMATE ADEQUATE (ADEQ); POTASSIUM 3.4 mEq/L (3.5-5.2); SODIUM 136 mEq/L (134-144)
[2016-05-20] MEDS: IPRATROPIUM/ALBUTEROL 3 ML DEYVIAL IH SCH ×2 (05:38→11:41)
[2016-05-20 07:50] VITALS: BP 159/75; PULSE 84; RESP 24; TEMP 97.4; O2SAT 93
[2016-05-20] MEDS ORDERED: predniSONE 20 MG TAB PO SCH (09:00)
[2016-05-20] MEDS: ENOXAPARIN 40 MG/0.4 ML SYR SC SCH (09:06)
[2016-05-20] MEDS: morphINE 10 MG/0.5 ML UDSYR PO PRN (09:15)
[2016-05-20] MEDS ORDERED: POTASSIUM CL 10 MEQ TAB PO ONE (09:28)
[2016-05-20] MEDS: NS 1,000 ML IV SCH (10:53)
--- NOTE | 2016-05-20 12:12 | PDIAF ---
- Diagnosis Diagnosis: aspiration pna, copd exacerbation Code Status: Do Not Resuscitate - Medication Management Discharge Medications: Medications to Continue on Transfer Acetaminophen [Tylenol 325mg (*)] 325 mg PO Q4H PRN 05/15/16 [Last Taken Unknown ] Acetaminophen [Tylenol Supp 325mg (*)] 650 mg NM Q4H PRN 05/15/16 [Last Taken ] Guaifenesin [Tussin] 200 mg PO Q6H PRN 05/15/16 [Last Taken 05/11/16] Nicotine [Nicoderm Cq 7 mg (*)] 7 mg TD DAILY@14 05/15/16 [Last Taken 05/14/16] Sennosides/Docusate Sodium [SENEXON-S TABLET] 2 each PO BID PRN 05/15/16 [Last Taken Unknown] guaiFENesin [Mucinex 600 MG (*)] 1,200 mg PO BID@08,16 05/15/16 [Last Taken 08:00] morphINE [Roxanol 10 mg/0.5 ml oral soln (*)] 5 mg PO Q2H PRN 05/15/16 [Last Taken 05/15/16 13:06] Amoxicillin/Clavulanate Pot [Augmentin 875 MG TAB (*)] 875 mg PO BID #10 tab [Last Taken Unknown] Ipratropium/Albuterol [Duoneb (*)] 3 ml IH QID #0 deyvial 05/20/16 [Last Taken Unknown] predniSONE 40 mg PO DAILY #0 tablet 05/20/16 [Last Taken Unknown] Alf Antibiotics: Augmentin 875 mg bid Resident Care Supervisor Antibiotic Stop Date: 05/24/16 Discharge Medications: Refer to the Discharge Home Medication list for PRN reason. - Orders Diet Texture: Dysphagia 1 - Pureed, [place] Thick Liquids, Meds Crushed in Puree - Follow Up Care Current Providers and Referrals: LORENA GIBSON [Primary Care Provider] -
--- NOTE | 2016-05-20 14:43 | PDPCPN ---
Palliative Care Progress Note Assessment/Plan: HPI: Virginia Hong is a 61 yo female with PMH lung cancer, brain cancer, eye cancer, and COPD admitted to the hospital from [facility] for respiratory distress. Recent discharge from OSH for PNA and was sent to with "comfort care" only as it was thought she was actively dying. She recovered a little while at and when she began to have resp distress was brought to the hospital. On admission with RLL PNA being treated with antibiotics and oxygen. Speech following with recs for nectar thick liquids. palliative care consulted for complex medical decision making. Virginia seen this afternoon. very fatigued sitting up in the chair. Appears comfortable but very tired and hard to respond to questions. Attempted to have Virginia complete MDPOA but unable to due to mental status. Spoke with nikki Coleman by phone. Discussed her Aunt is very fatigue and worried this may continue and she may not improve. Her niece stated she has tired to ask her about her wishes for repeated hospitalization but she was always very confused at the time. We discussed when Virginia has been clear, her goals did not seem to align with repeated hospitalizations as she frequently referred to her own status as that of her sister and mother who both from COPD on hospice care. Her niece Virginia would like to speak with [facility] back at [facility] to focus on comfort and avoid repeated hospitalizations. Assessment: Physical: - Pain: back pain- chronic - Tylenol PRN - also has morphine and dilaudid available as needed - Dyspnea/cough: - oxygen as needed - opiates as above if needed for subjective SOB Emotional/psychological: Some confusion and memory loss: on/off Advanced Care Planning: Is patient decisional?: Yes Code Status: DNR- does not want any life prolonging measures MD OCONNELL: Niece is proxy. Will have outpt continue to work on official MDPOA when able Plan: Spoke with Ninarendra Coleman who would like [facility] to eval when back at [facility]. Niece feels she would likely not want to keep returning back/ forth to the hospital for future infections. Subjective: very fatigued Objective: Vital Signs Temp Pulse Resp BP Pulse Ox 36.3 C 84 24 H 159/75 H 93 05/20/16 07:48 05/20/16 07:48 05/20/16 07:48 05/20/16 07:48 05/20/16 07:48 Laboratory Results 05/20/16 04:15 05/20/16 04:15 05/19/16 05/20/16 05/21/16 05:59 05:59 05:59 Intake Total 3396 3987 Output Total 200 0 Balance 3196 1937 PT 16.0 SEC (12.0-15.0) H 05/15/16 15:21 INR 1.28 (0.83-1.16) H 05/15/16 15:21 Physical Exam - Physical Exam General Appearance: no apparent distress, other (very fatigued ) Respiratory: No respiratory distress, No accessory muscle use Skin: normal color, warm/dry Extremities: No pedal edema Neuro/Psych: other (very fatigued but does try to respond to questions) ICD10 Worksheet Patient Problems: Problems Problem Status Diagnosed Acute respiratory failure Acute Palliative care encounter Acute Pneumonia Acute - ICD10 Problem Qualifiers (1) Palliative care encounter
--- NOTE | 2016-05-20 16:32 | GDS ---
[f rep st] DISCHARGE SUMMARY DISCHARGE DIAGNOSES: 1. Possible aspiration pneumonia. 2. Chronic obstructive pulmonary disease exacerbation. 3. End-stage chronic obstructive pulmonary disease. 4. Severe protein calorie malnutrition. 5. Acute on chronic hypoxic respiratory failure. 6. Hypernatremia. HISTORY: This is a 61-year-old female who was actually enrolled in hospice for some time due to her end-stage COPD, and who lives at [facility], presenting with acute shortness of breath. HOSPITAL COURSE: The patient was diagnosed with an aspiration pneumonia. She was treated with IV an tibiotics. She was also treated with steroids to help her COPD exacerbation. She comes in quite cac hectic and a with significant amount of debility. She was enrolled in hospice, but had rallied some prior to this hospitalization. Palliative care discussions were had with the patient and her family. They are considering Palliative Care to follow along at [facility] to try to avoid hospitalizati ons, if necessary, and then transition to hospice if this is appropriate. She will get a few more da ys of antibiotics to complete a 10-day course as well as steroid taper. DISPOSITION: [facility]. DISCHARGE MEDICATIONS: She is to resume her home medicines. In addition, she will be given Augmenti n 875 mg twice daily for 5 more days and prednisone taper. Greater than 30 minutes were spent in discharge. /[id number]/MODL
== END 2016-05-20 15:20 | DRG 177 ==
LOC: F2N 18:54
PROVIDERS: ADMIT Internal Medicine; ATTEND Internal Medicine
PROC: 5A09357 Assistance with Respiratory Ventilation, Less than 24 Consecutive Hours, Continuous Positive Airway Pressure (ICD-10-PCS; principal; 2016-05-15)
DX: J69.0 Pneumonitis due to inhalation of food and vomit (principal); J96.21 Acute and chronic respiratory failure with hypoxia; E43 Unspecified severe protein-calorie malnutrition; J44.0 Chronic obstructive pulmonary disease with (acute) lower respiratory infection; J44.1 Chronic obstructive pulmonary disease with (acute) exacerbation; E87.0 Hyperosmolality and hypernatremia; M54.9 Dorsalgia, unspecified; D64.9 Anemia, unspecified; B19.20 Unspecified viral hepatitis C without hepatic coma; M81.0 Age-related osteoporosis without current pathological fracture; Z85.118 Personal history of other malignant neoplasm of bronchus and lung; Z85.841 Personal history of malignant neoplasm of brain; Z66 Do not resuscitate
CPT/HCPCS: 92523-GN; 92526-GN; 92610-GN; 96365; 97163-GP; 97530-GP; 97532-GN; G8978-GP-CL; G8979-GP-CK; G8996-GN-CJ; G8997-GN-CI; G9165-GN-CJ; G9166-GN-CJ; G9167-GN-CJ; J0456; J0692; J0696; J1170; J1650; J2543